=== PATIENT | female | born 1975 | race Caucasian/White ===

== ENCOUNTER 2022-12-20 08:14 | Outpatient (CLI) | payer BC, SELFPAY ==
[2022-12-20 08:41] LABS: Basophils Absolute Auto 0.03 K/mm3 (0.00-0.10); Basophils Percent Auto 0.3 % (0.0-1.0); Eosinophils Absolute Auto 0.24 K/mm3 (0.02-0.50); Eosinophils Percent Auto 2.7 % (1.0-6.0); Hematocrit 38.4 % (35.0-49.0); Hemoglobin 12.5 g/dL (12.0-15.0); Immature Granulocyte Absolute 0.03 K/mm3 (0.00-0.00); Immature Granulocyte Percent A 0.3 % (0.0-0.0); Lymphocytes Absolute Auto 1.71 K/mm3 (1.10-4.50); Lymphocytes Percent Auto 19.3 % (18.0-42.0); Mean Corpuscular HGB Conc 32.6 g/dL (32.0-36.0); Mean Corpuscular Hemoglobin 26.9 pg (27.0-31.0); Mean Corpuscular Volume 82.8 fL (78.0-102.0); Mean Platelet Volume 11.1 fl (9.2-11.8); Monocytes Absolute Auto 0.61 K/mm3 (0.10-0.90); Monocytes Percent Auto 6.9 % (2.0-11.0); Neutrophils Absolute Auto 6.2 K/mm3 (1.7-7.2); Neutrophils Percent Auto 70.5 % (50.0-70.0); Platelet Count Result 263 K/mm3 (150-420); Red Blood Count 4.64 M/mm3 (4.20-5.40); Red Cell Distribution Width 14.3 % (11.6-14.4); White Blood Count 8.9 K/mm3 (4.8-10.8)
[2022-12-20 09:28] LABS: Alanine Aminotransferase 19 U/L (14-59); Albumin Level 3.7 g/dL (3.4-5.0); Alkaline Phosphatase 79 U/L (46-116); Anion Gap 11 mmol/L (8-16); Aspartate Amino Transferase 13 U/L (15-37); Bilirubin,Total 0.4 mg/dL (0.00-1.00); Blood Urea Nitrogen 14 mg/dL (7-18); Calcium 8.8 mg/dL (8.5-10.1); Carbon Dioxide 27 mmol/L (21-32); Chloride 103 mmol/L (98-108); Cholesterol 156 mg/dL (0-200); Estimated Glomerular Filt Rate > 60; Glucose 95 mg/dL (70-99); HDL Direct 54 mg/dL (40-60); Iron 72 ug/dL (50-170); LDL Cholesterol Calculated 87 mg/dL (<130); Osmolality Calculated 292 mOsm/kg (285-295); Percent Iron Saturation 20 % (12-57); Sodium 141 mmol/L (136-145); Triglycerides 73 mg/dL (0-150)
[2022-12-25 16:19] LABS: Vitamin D 25 Hydroxy 36 ng/mL (30-100)
== END 2022-12-20 08:15 | disposition home or self-care (01) ==
LOC: CHSLAB 08:17
PROVIDERS: PCP Nurse Practitioner Family; Visit Provider Nurse Practitioner Family
DX: R03.0 Elevated blood-pressure reading, without diagnosis of hypertension (principal); Z87.19 Personal history of other diseases of the digestive system; F41.9 Anxiety disorder, unspecified; E55.9 Vitamin D deficiency, unspecified
CPT/HCPCS: 36415; 80053; 80061; 82306; 83540; 83550; 84443; 85025

== ENCOUNTER 2023-01-05 13:48 | Outpatient (CLI) | payer BC, SELFPAY ==
--- NOTE | ~2023-01-05 | MM_ITS ---
EXAMINATION: MM screening [facility] HISTORY: Baseline screening mammogram TECHNIQUE: Craniocaudal and mediolateral oblique 3-D tomosynthesis images were obtained and synthetic 2-D images were generated. CAD analysis was submitted and interpreted. COMPARISON: None, baseline BREAST PARENCHYMAL COMPOSITION: The breasts are heterogeneously dense, which may obscure small masses . FINDINGS: RIGHT BREAST: Asymmetry is present in the middle third of the right breast on the craniocaudal view. LEFT BREAST: There is focal asymmetry in the posterior third of the outer breast. IMPRESSION: 1. Left breast focal asymmetry and right breast asymmetry. 2. Additional mammographic views and possible breast ultrasound are recommended to evaluate the bilat eral breast findings and establish a baseline given that this is the first mammographic examination. BI-RADS Category 0: Incomplete: Needs additional imaging evaluation. Reviewed, dictated and finalized at location A. IMPRESSION: 1. Left breast focal asymmetry and right breast asymmetry. 2. Additional mammographic views and possible breast ultrasound are recommended to evaluate the bilateral breast findings and establish a baseline given that this is the first mammographic examination. BI-RADS Category 0: Incomplete: Needs additional imaging evaluation.
== END 2023-01-05 13:49 | disposition home or self-care (01) ==
LOC: CHSIMG 13:49
PROVIDERS: PCP Nurse Practitioner Family; Visit Provider Nurse Practitioner Family
DX: Z12.31 Encounter for screening mammogram for malignant neoplasm of breast (principal); R92.8 Other abnormal and inconclusive findings on diagnostic imaging of breast
CPT/HCPCS: 77063; 77067

== ENCOUNTER 2023-01-23 09:02 | Outpatient (CLI) | payer BC, SELFPAY ==
--- NOTE | ~2023-01-23 | MM_ITS ---
EXAMINATION: MM diagnostic [facility] HISTORY: Left breast focal asymmetry and right breast asymmetry on baseline screening mammogram TECHNIQUE: Additional 3-D tomosynthesis images of the breasts were performed and synthetic 2-D images were generated. CAD analysis was submitted and interpreted. COMPARISON: 01/05/2023 FINDINGS: The left breast focal asymmetry and right breast asymmetry disperses with spot compression of the breasts. No suspicious mass, calcification, or architectural distortion are identified. IMPRESSION: 1. No mammographic evidence of malignancy. 2. Recommend routine screening mammography in one year. BI-RADS Category 1: Negative Reviewed, dictated and finalized at location A.
== END 2023-01-23 09:03 | disposition home or self-care (01) ==
LOC: CHSIMG 09:03
PROVIDERS: PCP Family Medicine; Visit Provider Nurse Practitioner Family
DX: R92.8 Other abnormal and inconclusive findings on diagnostic imaging of breast (principal)
CPT/HCPCS: 77062; 77066; G0279

== ENCOUNTER 2023-11-30 08:48 | Outpatient (CLI) | payer BC, SELFPAY ==
[2023-11-30 09:06] LABS: Hematocrit 41.3 % (35.0-49.0); Hemoglobin 13.4 g/dL (12.0-15.0); Mean Corpuscular HGB Conc 32.4 g/dL (32-36); Mean Corpuscular Hemoglobin 27.5 pg (27.0-31.0); Mean Corpuscular Volume 84.6 fL (78.0-102.0); Mean Platelet Volume 11.1 fl (9.2-11.8); Platelet Count Result 255 K/mm3 (150-420); Red Blood Count 4.88 M/mm3 (4.20-5.40); Red Cell Distribution Width 14.2 % (11.6-14.4)
[2023-11-30 10:07] LABS: Alanine Aminotransferase 18 U/L (14-59); Albumin Level 3.8 g/dL (3.4-5.0); Alkaline Phosphatase 84 U/L (46-116); Anion Gap 8 mmol/L (4-12); Aspartate Amino Transferase 15 U/L (15-37); Bilirubin,Total 0.3 mg/dL (0.00-1.00); Blood Urea Nitrogen 14 mg/dL (7-18); Carbon Dioxide 28 mmol/L (21-32); Chloride 104 mmol/L (98-108); Cholesterol 160 mg/dL (0-200); Estimated Glomerular Filt Rate > 60; Glucose 105 mg/dL (70-99); Osmolality Calculated 290 mOsm/kg (285-295); Sodium 140 mmol/L (136-145); Thyroid Stimulating Hormone 2.38 uIU/mL (0.36-3.74); Total Protein 7.2 g/dL (6.4-8.2); Triglycerides 56 mg/dL (0-150)
[2023-11-30 10:08] LABS: HDL Direct 59 mg/dL (40-60); LDL Cholesterol Calculated 90 mg/dL (<130)
[2023-12-05 14:53] LABS: Vitamin D 1,25 (OH)2 Total 59 pg/mL (18-72); Vitamin D2 1,25 (OH)2 <8 pg/mL; Vitamin D3 1,25 (OH)2 59 pg/mL
== END 2023-11-30 08:49 | disposition home or self-care (01) ==
LOC: CHSLAB 08:49
PROVIDERS: PCP Nurse Practitioner Family; Visit Provider Nurse Practitioner Family
DX: Z00.00 Encounter for general adult medical examination without abnormal findings (principal); E55.9 Vitamin D deficiency, unspecified
CPT/HCPCS: 36415; 80053; 80061; 82652; 83036; 84443; 85027